=== PATIENT | female | born 1960 | race Caucasian/White ===

== ENCOUNTER → 2016-11-13 | Outpatient (CLI) | payer BC ==
[2016-11-13 11:07] LABS: HEMATOCRIT 40.6 % (35.0-45.0); HEMOGLOBIN 13.1 gm/dL (12.0-16.0); MEAN CELL VOLUME 94.2 FL (83-96); MEAN CORPUSCULAR HEMOGLOBIN 30.4 PG (28-34); MEAN CORPUSCULAR HGB CONC 32.2 g/dL (30-36); MEAN PLATELET VOLUME 8.2 FL (6.5-11.5); RED BLOOD COUNT 4.31 X10e (3.90-5.30); RED CELL DISTRIBUTION WIDTH 13.6 % (11.0-15.5); WHITE BLOOD COUNT 5.4 X10e3 (4.0-10.5)
[2016-11-13 11:47] LABS: ALBUMIN SERUM 4.2 g/dL (3.5-5.0); BILIRUBIN,TOTAL 0.4 mg/dL (0.2-2.0); BUN/CREATININE RATIO 25.71; CALCIUM SERUM 9.3 mg/dL (8.4-10.2); CREATININE SERUM 0.7 mg/dL (0.6-1.4); GLOM FILT RATE Estimated 97.5 mL/min (>60); POTASSIUM 4.4 mmol/L (3.5-5.1)
== END | disposition home or self-care (01) ==
LOC: CLAB 10:37
PROVIDERS: Internal Medicine Cardiovascular Disease
DX: R07.9 Chest pain, unspecified (principal); R53.83 Other fatigue
CPT/HCPCS: 36415; 80053; 80061; 84443; 85027

== ENCOUNTER → 2016-11-15 | Outpatient (CLI) | payer BC ==
--- NOTE | ~2016-11-15 | ST ---
Unit #: [id number] #: [id number] Patient: SHAYNA OWENS [id number] [facility]. [address] [address] [id number] O MR#: [id number] NAME: SHAYNA OWENS : 1960 SEX: F STUDY DATE/TIME: 11/15/2016 UNIT: [facility] ROOM: STUDY DESCRIPTION: Attending Physician: Luci Rodríguez M.D. Referring Physician: Luci Rodríguez M.D. Primary Care Physician: Britany Primary Care Physician CARDIOLOGY REPORT EXAM Exercise Cardiolite stress test. FINDINGS Baseline EKG: Normal sinus rhythm with ventricular rate 79 beats per minute, low voltage in inferior leads in V1, poor R-wave progression, left atrial abnormality. PROCEDURE Patient walked on the treadmill for six minutes utilizing Nestor protocol, achieving a workload of 7 METs. Next, 96% of maximum target heart rate achieved at 160 beats per minute with a maximum blood pressure response of 169/80 mmHg. Next, EKG during the test did not show anything acute, nonspecific changes. IMPRESSION 1. Functional class III with a workload of 7 METs. 2. The patient walked for 6 minutes utilizing Nestor protocol, achieving a maximum heart rate response of 160 beats per minute with a maximum blood pressure response of 162/90 mmHg. 3. EKG during the test showed some nonspecific ST-T wave abnormalities in lateral leads, otherwise unremarkable. 4. The patient had no complaints of chest pain, palpitations, or dizziness. Had increased shortness of breath. Had a fairly poor exercise tolerance. 5. Cardiolite was injected at maximum target heart rate. Radionuclide tests pending. Please correlate with nuclear images. Dictated by... Rianna Heath A.P.R.N. for Gaviota Bermudez/abraham TD: 11/15/2016 10:08 JOB #: [id number] Unit #: [id number] #: [id number] Patient: SHAYNA OWENS CARDIOLOGY REPORT Page 1 of 1 X Rianna Heath APRN CARDIOLOGY REPORT
--- NOTE | ~2016-11-15 | TH ---
Unit #: [id number] #: [id number] Patient: SHAYNA OWENS [id number] [address] [address] [id number] O MR#: [id number] NAME: SHAYNA OWENS : 1960 SEX: F STUDY DATE/TIME: 11/15/2016 UNIT: [facility] ROOM: STUDY DESCRIPTION: Attending Physician: Luci Rodríguez M.D. Referring Physician: Luci Rodríguez M.D. Primary Care Physician: Britany Primary Care Physician CARDIOLOGY REPORT EXAM Exercise Cardiolite stress test, nuclear portion. PROCEDURE Using technetium 99m labeled Cardiolite, rest and stress SPECT images were obtained. Multiple SPECT images were obtained in various views including horizontal and vertical long axis and short axis views of the left ventricle. Images were obtained by gated SPECT method. The patient was administered 12 mCi of Cardiolite at rest. The patient was administered 34.2 mCi of Cardiolite at peak exercise. Total exercise time is 6 minutes. On the stress images, there is normal perfusion noted. The rest images show normal perfusion. Comparing rest and stress images, there is no stress-induced ischemia noted. The left ventricular ejection fraction is calculated to be 71%. There is no focal wall motion abnormality seen. CONCLUSION 1. No stress-induced ischemia noted. 2. The left ventricular ejection fraction is calculated to be 71%. 3. There is no focal wall motion abnormality seen. 4. Normal exercise Cardiolite stress test. Dictated by... Gaviota Bermudez TD: 11/15/2016 11:22 JOB #: [id number] CARDIOLOGY REPORT Page 1 of 1 X Luci Rodríguez MD <ELECTRONICALLY SIGNED> 02/16/17 1429 CARDIOLOGY REPORT
== END | disposition home or self-care (01) ==
LOC: CNUC 06:53
DX: R07.9 Chest pain, unspecified (principal); R53.83 Other fatigue
CPT/HCPCS: 78452; 93017; A9500